=== PATIENT | female | born 1995 | race Caucasian/White ===

== ENCOUNTER 2017-11-17 18:57 | Emergency (ER) | payer OTHER ==
[2017-11-17 19:11] VITALS: BP 116/68
--- NOTE | 2017-11-17 19:19 | ED Physician Documentation ---
General Adult - HISTORIAN Historian: patient - HPI Stated Complaint: FB L ear Chief Complaint: General Adult Onset: hours Timing: still present Severity: mild Further Comments: yes (Pt is a 22 yo female with a foreign body in her L ear, part of a hearing aid. Pt pushed the part farther into her ear, trying to get it out.) - ROS CONST: no problems EYES/ENT: other (fb L ear) CVS/RESP: none GI/: none MS/SKIN/LYMPH: none - PAST HX Past History: asthma Surgeries/Procedures: other (tonsillectomy, b/l ear surgery x 2) Allergies/Adverse Reactions: Allergies Allergy/AdvReac Type Severity Reaction Status Date / Time latex Allergy Verified 11/17/17 19:17 Home Medications: Ambulatory Orders Medication Instructions Recorded Albuterol Sulfate [ProAir 1 puff INH Q6H PRN 11/17/17 [employer]] - SOCIAL HX Smoking History: cigarettes - FAMILY HX Family History: No - VITAL SIGNS Vital Signs: Vital Signs Temp Pulse Resp BP Pulse Ox 98.1 F 78 18 116/68 98 11/17/17 19:08 11/17/17 19:08 11/17/17 19:08 11/17/17 19:08 11/17/17 19:08 - REVIEWED ASSESSMENTS Nursing Assessment Reviewed: Yes Vitals Reviewed: Yes Progress - Progress Progress: foreign body removed from L ear canal with flushing and ear curette. General Adult Physical Exam - PHYSICAL EXAM GENERAL APPEARANCE: mild distress EENT: other (Foreign body L ear, white plastic hearing aid part.) NECK: normal inspection RESPIRATORY: no resp distress BACK: normal inspection SKIN: warm/dry, normal color EXTREMITIES: non-tender, normal range of motion NEURO: oriented X3, motor nml, sensation nml Discharge Clincal Impression: foreign body L ear, removed Referrals: Primary Doctor,No [Primary Care Provider] - Condition: Good Disposition: 01 HOME, SELF-CARE Decision to Admit: NO Decision Time: 19:20
== END 2017-11-17 19:23 | disposition home or self-care (01) ==
LOC: ED 18:57
DX: T16.2XXA Foreign body in left ear, initial encounter (principal); X58.XXXA Exposure to other specified factors, initial encounter; Y92.9 Unspecified place or not applicable; Y93.9 Activity, unspecified
CPT/HCPCS: 99282; 99283

== ENCOUNTER 2017-11-18 22:28 | Emergency (ER) | payer OTHER ==
--- NOTE | 2017-11-18 22:36 | ED Physician Documentation ---
Ear Complaints - HISTORIAN Historian: patient - HPI Stated Complaint: ear pain Chief Complaint: Ear Complaints Timing: still present Location of Pain: R ear Severity: mild Associated Symptoms: other (she lost her hearing aide in her ear canal . she did the same thing last night on other ear ). denies: fever - ROS CONST: no problems CVS/RESP: none GI/: denies: nausea, vomiting MS/SKIN/LYMPH: none All Systems -: No - PAST HX Past History: ear tubes Immunizations: UTD Allergies/Adverse Reactions: Allergies Allergy/AdvReac Type Severity Reaction Status Date / Time latex Allergy Verified 11/18/17 22:41 Home Medications: Ambulatory Orders Medication Instructions Recorded Albuterol Sulfate [ProAir 1 puff INH Q6H PRN 11/17/17 [employer]] - SOCIAL HX Smoking History: non-smoker Alcohol Use: none Drug Use: none - FAMILY HX Family History: No - VITAL SIGNS Vital Signs: Vital Signs Temp Pulse Resp BP Pulse Ox 116/68 11/17/17 19:23 - REVIEWED ASSESSMENTS Nursing Assessment Reviewed: Yes Vitals Reviewed: Yes Ear Complaint Physical Exam - EXAM General Appearance: no acute distress Ear: other (foreign body (hearing aid piece) in right ear lavage and currette used to remove ) Mouth/Throat: lips nml Nose: nml inspection Head/Neck: atraumatic Eye: eyes nml inspection, PERRL Resp/CVS: chest non-tender, breath sounds nml, heart sounds nml, no resp. distress, lungs clear Skin: nml color, no skin rash Neuro/Psych: oriented x3, mood/affect nml Discharge Clincal Impression: Foreign body in right ear, initial encounter Referrals: Primary Doctor,No [Primary Care Provider] - 2 Days Comments: Follow up with hearing instrument specialist DG Condition: Stable Disposition: HOME, SELF-CARE Decision to Admit: NO Date of Decison to Admit: 11/18/17 Decision Time: 23:09
[2017-11-18 22:41] VITALS: BP 112/70
== END 2017-11-18 23:10 | disposition home or self-care (01) ==
LOC: ED 22:28
DX: T16.1XXA Foreign body in right ear, initial encounter (principal); X58.XXXA Exposure to other specified factors, initial encounter; Y93.9 Activity, unspecified; Y92.9 Unspecified place or not applicable; Y99.9 Unspecified external cause status
CPT/HCPCS: 99283; S1016

== ENCOUNTER 2018-04-16 10:24 | Outpatient (CLI) | payer BC, OTHER ==
[2018-04-16 10:52] LABS: BASOPHILS % 0.4 (0.0-1.5); EOSINOPHILS % 6.2 % (0.0-6.8); MEAN CORPUSCULAR HEMOGLOBIN 32.1 pg (28.0-34.0); MEAN CORPUSCULAR VOLUME 96.3 fl (80.0-100.0); MONOCYTES % 3.7 % (0.0-11.0); NEUTROPHILS # 4.1 # k/uL (1.4-7.7)
[2018-04-16 11:05] LABS: eGFR (African) > 60; eGFR (Non-African) > 60
== END 2018-04-16 10:26 ==
LOC: LAB 10:24
PROVIDERS: ATTEND Physician Assistant
DX: F41.9 Anxiety disorder, unspecified (principal); R53.83 Other fatigue; R63.5 Abnormal weight gain
CPT/HCPCS: 36415; 80053; 84443; 85025

== ENCOUNTER 2018-07-10 23:30 | Emergency (ER) | payer BC, OTHER ==
--- NOTE | 2018-07-11 00:28 | ED Physician Documentation ---
General Adult - HISTORIAN Historian: patient - HPI Chief Complaint: General Adult Additional Information: several hour history of right lower flank, buttocks pain. No precipitating factor. No modifying factors noted. No change with movement noted. No history of trauma noted. Constant achy sensation in nature. No abnormal vaginal bleeding or discharge noted. No previous problems. States that her LNMP was Jun 09. No trying to prevent . Timing: still present Severity: moderate Modifying Factors: none Context: no precipitaing cause - ROS CONST: denies: fever, chills CVS/RESP: none GI/: other (Did home pregnanct test positive. ) LNMP: 06/09/18 MS/SKIN/LYMPH: none NEURO/PSYCH: denies: headache, fainting, dizziness, tingling, numbness - PAST HX Past History: asthma, other (anxiety) Surgeries/Procedures: other (ear) Immunizations: referred to PCP Allergies/Adverse Reactions: Allergies Allergy/AdvReac Type Severity Reaction Status Date / Time latex Allergy Verified 07/11/18 01:44 - SOCIAL HX Smoking History: greater than 1 pack/day (1 1/2 ppd) Alcohol Use: rarely Drug Use: none - FAMILY HX Family History: Yes - VITAL SIGNS Vital Signs: Vital Signs Temp Pulse Resp BP Pulse Ox 112/70 11/18/17 23:10 General Adult Physical Exam - PHYSICAL EXAM GENERAL APPEARANCE: mild distress EENT: ENT inspection normal NECK: normal inspection, supple RESPIRATORY: no resp distress, chest non-tender, breath sounds normal. No: wheezes, rales, rhonchi CVS: reg rate & rhythm, heart sounds normal, equal pulses ABDOMEN: soft, no organomegaly, normal bowel sounds, no abdominal bruit, no distension, tenderness (mild suprapubic area) BACK: normal inspection, no CVA tenderness SKIN: warm/dry, normal color EXTREMITIES: non-tender, normal range of motion, no evidence of injury, tenderness (over sciatical area of the buttocks) NEURO: oriented X3, mood/affect nml, cognition normal Discharge Clincal Impression: Buttock pain Referrals: Mercy Boykin PA [Primary Care Provider] - 2 Days Additional Instructions: Try using a cool or warm compress to the buttocks area. Do some gentle stretching exercises. You may take acetaminophen, (Tylenol) as needed for pain. The tests that we have done tonight were negative. Recheck a home test in one week. Condition: Stable Disposition: 01 HOME, SELF-CARE Decision to Admit: NO Date of Decison to Admit: 07/11/18 Decision Time: 02:05
[2018-07-11] MEDS ORDERED: ACETAMINOPHEN 325 MG TABLET PO ONE (01:27)
[2018-07-11 02:41] LABS: BASO % 0.7 % (0.0-1.5); EOS % 5.4 % (0.0-6.8); LYMPH ABS # 2.97 thou/uL (0.60-4.00); MCH. 32.1 pg (28.0-34.0); MCV 95.3 fL (80.0-100.0); MONOCYTE % 5.8 % (0.0-11.0); MONOCYTE ABS # 0.51 thou/uL (0.00-0.90); PLATELET COUNT 274 thou/uL (130-400)
[2018-07-11 02:43] VITALS: BP 121/78
[2018-07-11 06:46] LABS: APPEARANCE,URINE CLOUDY (CLEAR); COLOR,URINE YELLOW (YELLOW); OCCULT BLOOD,URINE NEGATIVE (NEGATIVE); URINE HCG NEGATIVE (NEGATIVE); UROBILINOGEN URINE 0.2 Eu (0.2-1.0)
== END 2018-07-11 02:38 | disposition home or self-care (01) ==
LOC: ED 23:30
DX: M79.1 Myalgia (principal)
CPT/HCPCS: 80053; 81002; 81025; 84703; 85025

== ENCOUNTER 2018-08-11 09:48 | Outpatient (CLI) | payer BC ==
--- NOTE | 2018-08-11 15:15 | Diagnostic Imaging Report ---
GABRIEL TORRES [facility] [address] [facility].[address] [id number] Report Submission Date: Aug 11, 2018 11:35:03 AM CDT Patient Study Name: DERREK NASSAR Date: Aug 11, 2018 10:07:02 AM CDT Modality Type: US Gender: F Description: TVG OB : 89 Institution: [facility] Physician: GABRIEL TORRES Ob ultrasound less than 14 weeks History: The patient had a miscarriage on July 11, 2018 and now has a positive test. Transverse and longitudinal images were obtained through the pelvis endovaginally. The uterus measures 8.0 x 4.2 x 5.6 cm in greatest dimension. The endometrium is diffusely thickened measuring up to 1.5 cm. No gestational sac is identified within the uterus. The myometrium is unremarkable. The left ovary measures 4.0 x 2.6 x 2.8 cm in greatest dimension. The left ovary appears normal with normal flow. The right ovary is smaller than the left. The right ovary measures 2.5 x 1.7 x 1.9 cm in greatest dimension. There is normal flow to the right ovary. There is a small amount of free fluid adjacent to the right ovary. No complex right adnexal masses are identified. Impression: Thickened endometrium up to 1.5 cm. No gestational sac identified in the uterus. The left ovary is larger than the right but otherwise appears normal. There is flow to both ovaries. Small amount of free fluid adjacent to the right ovary. In the setting of a positive test with no beta HCG, these findings are nonspecific. These findings could represent a very early gestation. However, these findings could also represent the the sequelae of a spontaneous in progress or possibly an ectopic . Please correlate with the patient's beta HCG. Short interval follow-up ultrasound may also be helpful. Electronically signed on Aug 11, 2018 11:35:03 AM CDT by: Laurence WILKINS
== END 2018-08-11 09:50 ==
LOC: LAB 09:48
PROVIDERS: ATTEND Physician Assistant
DX: N92.6 Irregular menstruation, unspecified (principal); Z87.59 Personal history of other complications of pregnancy, childbirth and the puerperium
CPT/HCPCS: 36415; 76830; 84702

== ENCOUNTER 2018-08-13 10:31 | Outpatient (CLI) | payer BC | END 2018-08-13 10:32 | LOC: LAB 10:31 | PROVIDERS: ATTEND Physician Assistant | DX: Z34.90 Encounter for supervision of normal pregnancy, unspecified, unspecified trimester (principal) | CPT/HCPCS: 36415; 84702 ==